=== PATIENT | female | born 1995 | race African-American/Black ===

== ENCOUNTER 2017-12-11 14:16 | Emergency (ER) | payer OTHER ==
[~2017-12-11] VITALS: Ht 165.1 cm; Wt 113.4 kg
[~2017-12-11 14:16] MED LIST: CIPRO500 M1; CIPROFLOXACIN500 M1 PO; IBUPROFEN 600600 M1 PO; NAPROSYN500 MG PO; NOHOMEMEDICATIONS; NORCO 5-325 TA1 EACH PO; NORFLEX100 MG PO; ZOFRAN ODT4 MG PO; ZPAK PO
[2017-12-11 15:21] LABS: URINE BILIRUBIN NEGATIVE (Negative); URINE BLOOD TRACE (Negative); URINE CLARITY CLEAR; URINE COLOR YELLOW; URINE GLUCOSE-RANDOM* NEGATIVE (Negative); URINE KETONES NEGATIVE (Negative); URINE NITRITE-REFLEX NEGATIVE (Negative); URINE PROTEIN (DIPSTICK) NEGATIVE (Negative); URINE SPECIFIC GRAVITY 1.025 (1.005-1.035); URINE UROBILINOGEN 0.2 E.U./dl (0.2-1.0)
[2017-12-11 15:23] LABS: URINE LEUKOCYTES-REFLEX 1+ (Negative)
[2017-12-11 15:34] LABS: SQUAMOUS >10 Many /LPF (0-3)
[2017-12-11 15:35] LABS: BACTERIA-REFLEX >30 Many /HPF (None Seen); MUCUS >6 Heavy strn/LPF (None Seen)
[2017-12-11 15:36] LABS: CASTS None Seen /LPF (None Seen); CRYSTALS None Seen /LPF (None Seen); URINE RBC 3-10 Few /HPF (0-2); URINE WBC-REFLEX 6-15 Few /HPF (0-5)
[2017-12-11] MEDS ORDERED: KEFLEX500 M1 PO (15:59)
[2017-12-11] MEDS ORDERED: DIFLUCAN200 MG PO (15:59)
== END 2017-12-11 16:08 | disposition home or self-care (01) ==
LOC: ER 14:16
PROVIDERS: Physician Assistant
DX: N39.0 Urinary tract infection, site not specified (principal); B37.89 Other sites of candidiasis